=== PATIENT | female | born 1955 | race Caucasian/White ===

== ENCOUNTER 2016-10-03 17:38 | Emergency (ER) | payer OTHER ==
[2016-10-03 17:42] VITALS: BMI 25.1
--- NOTE | 2016-10-03 18:29 | PDOC ---
History of Present Illness - General History Source: Patient Exam Limitations: No Limitations - History of Present Illness Initial Comments: 10/03/16 18:33 The patient is a 60 year old female, with significant past medical history of HLD, who presents today complaining of 5 days of intermittent chest palpitations. At the onset of chest palpitations 5 days ago she was sitting at home and the palpitations lasted for 1 hour. She states that she has approximately 2 episodes of palpitations a day; however, today she had multiple episodes. She states that her only change in diet has been increased coffee intake. Denies chest pain, sob. Denies nausea, vomiting, fever, chills, abdominal pain. Allergies:Pork Social Hx: No tobacco use, No alcohol use. <Savanna Ventura - Last Filed: 10/03/16 18:34> - General History Source: Patient, Old Records Exam Limitations: No Limitations <Latisha Bolaños - Last Filed: 10/03/16 20:54> - General Chief Complaint: Palpitations Stated Complaint: PALPITATIONS Time Seen by Provider: 10/03/16 18:16 Past History <Savanna Ventura - Last Filed: 10/03/16 18:34> - Past Medical History Hypercholesterolemia: Yes - Immunization History Td Vaccination: Yes Immunization Up to Date: Yes - Psycho/Social/Smoking Cessation Hx Anxiety: No Suicidal Ideation: No Smoking Status: No Smoking History: Never smoked Have you smoked in the past 12 months: No Number of Cigarettes Smoked Daily: 0 Hx Alcohol Use: No Drug/Substance Use Hx: No Substance Use Type: None <Latisha Bolaños - Last Filed: 10/03/16 20:54> - Past Medical History Allergies/Adverse Reactions: Allergies Allergy/AdvReac Type Severity Reaction Status Date / Time PORK Allergy Swelling Uncoded 10/03/16 17:43 Home Medications: Ambulatory Orders Atorvastatin Ca [Lipitor] 40 mg PO HS 11/24/11 Review of Systems - Review of Systems Able to Perform ROS?: Yes Comments:: 10/03/16 18:34 CONSTITUTIONAL: Absent: fever, no chills, no fatigue EYES: Absent: visual changes ENT: Absent: ear pain, no sore throat CARDIOVASCULAR: Present: palpitations Absent: chest pain RESPIRATORY: Absent: cough, no SOB GI: Absent: abdominal pain, no nausea, no vomiting, no constipation, no diarrhea GENITOURINARY: Absent: dysuria, no frequency, no hematuria MUSCULOSKELETAL: Absent: back pain, no arthralgia, no myalgia SKIN: Absent: rash <Savanna Ventura - Last Filed: 10/03/16 18:34> *Physical Exam - Vital Signs Last Vital Signs Temp Pulse Resp BP Pulse Ox 97.8 F 67 20 151/82 96 10/03/16 17:40 10/03/16 17:40 10/03/16 17:40 10/03/16 17:40 10/03/16 17:40 - Physical Exam Comments: 10/03/16 18:34 GENERAL: Well-appearing, well-nourished. No apparent distress. HEENT: Normocephalic, atraumatic. PERRL, EOM intact. CARDIOVASCULAR: Normal S1, S2. Regular rate and rhythm. PULMONARY: Clear to auscultation bilaterally. ABDOMEN: Soft, non-distended, non-tender. EXTREMITIES: Normal ROM in all four extremities. No gross deformities. SKIN: Warm, dry. No rash NEUROLOGICAL: No focal neurological deficits. <Lee AnnbaldoChristySavanna - Last Filed: 10/03/16 18:34> - Vital Signs Last Vital Signs Temp Pulse Resp BP Pulse Ox 97.8 F 67 20 151/82 96 10/03/16 17:40 10/03/16 17:40 10/03/16 17:40 10/03/16 17:40 10/03/16 17:40 <Latisha Bolaños - Last Filed: 10/03/16 20:54> ED Treatment Course - LABORATORY CBC & Chemistry Diagram: 10/03/16 18:30 10/03/16 18:30 <Latisha Bolaños - Last Filed: 10/03/16 20:54> Medical Decision Making - Medical Decision Making 10/03/16 18:31 60-year-old female with history of hypercholesterolemia presents the emergency department with a one-week history of intermittent palpitations. Differential diagnosis includes but is not limited to: Cardiac arrhythmia, PVCs, MCP, electrolyte abnormality, dehydration, toxic/metabolic derangement. Plan: 1. EKG 2. Labs 3. Thyroid studies 4. Urine 5. Chest x-ray 6. Observe and reevaluate 10/03/16 20:52 Addendum: The labs were reviewed and are noted in the EMR. EKG shows sinus bradycardia at 55 bpm with no acute ST segment elevations. Chest x-ray is negative. I have discussed the results of all of the studies with the patient and the plan is to discharge home. The patient has an appointment with her primary care physician for Wednesday which I have encouraged her to keep. I have also advised the patient to return to the emergency department if her symptoms persist, worsen, or new symptoms arise. <Latisha Bolaños - Last Filed: 10/03/16 20:54> *DC/Admit/Observation/Transfer - Attestations Scribe Attestion: 10/03/16 18:34 Documentation prepared by ROSA Holloway, acting as medical director of hospice for Latisha Bolaños MD. <Savanna Ventura - Last Filed: 10/03/16 18:34> - Discharge Dispostion Admit: No - Attestations Physician Attestion: 10/03/16 18:32 I, Dr. Latisha Bolaños, attest that the scribes documentation that appears above has been prepared under my direction and personally reviewed by me in its entirety. I confirmed that the note above accurately reflects all work, treatment, procedures, and medical decision-making performed by me. <Latisha Bolaños - Last Filed: 10/03/16 20:54> Diagnosis at time of Disposition: Palpitations - Discharge Dispostion Disposition: HOME Condition at time of disposition: Stable - Patient Instructions Printed Discharge Instructions: DI for Palpitations Additional Instructions: Keep your primary care appointment on Wednesday as scheduled. Return to the emergency department if your symptoms persist, worsen, or new symptoms arise.
[2016-10-03 18:46] LABS: BASOPHIL 0.7 % (0-2.0); MCH 29.6 pg (25.7-33.7); MCHC 32.5 g/dl (32.0-36.0); MEAN CELL VOLUME 91.1 fl (80-96); MEAN PLT VOLUME 9.2 fl (7.5-11.1); NEUTROPHILS 52.6 % (42.8-82.8); PLATELET COUNT 265 K/MM3 (134-434); RDW 13.9 % (11.6-15.6); WHITE BLOOD COUNT 9.3 K/mm3 (4.0-10.0)
[2016-10-03 19:12] LABS: URINE APPEARANCE CLEAR; URINE BILIRUBIN NEGATIVE (NEGATIVE); URINE COLOR LTYELLOW; URINE GLUCOSE (UA) NEGATIVE (NEGATIVE); URINE KETONE NEGATIVE (NEGATIVE); URINE LEUK ESTERASE NEGATIVE (NEGATIVE); URINE NITRITE NEGATIVE (NEGATIVE); URINE PROTEIN NEGATIVE (NEGATIVE); URINE UROBILINOGEN NEGATIVE E.U./dl (0.2-1.0)
[2016-10-03 19:23] LABS: ALBUMIN 4.6 g/dl (3.4-5.0); ANION GAP 8 (8-16); CALCIUM 9.3 mg/dL (8.5-10.1); CO2 27 mmol/L (21-32); CREATININE 0.7 mg/dL (0.55-1.02); GLUCOSE,RANDOM 114 mg/dL (74-106); SGOT/AST 20 U/L (15-37); SGPT/ALT 41 U/L (12-78); TOT PROT 7.9 g/dl (6.4-8.2)
[2016-10-03 19:28] LABS: URINE BLOOD 2+ (NEGATIVE)
[2016-10-03 19:37] LABS: ALK PHOS 113 U/L (45-117); BILIRUBIN,TOTAL 0.8 mg/dL (0.2-1.0); TROPONIN I < 0.02 ng/ml (0.00-0.05)
[2016-10-03 19:49] LABS: URINE MUCUS RARE; URINE RBC 6 /hpf (0-3); URINE WBC 1 /hpf (3-5)
[2016-10-03 21:38] VITALS: BP 124/74; PULSE 84; TEMP 98.6
--- NOTE | 2016-10-04 14:39 | EKG ---
Test Reason : Blood Pressure : / mmHG Vent. Rate : 055 BPM Atrial Rate : 055 BPM P-R Int : 172 ms QRS Dur : 112 ms QT Int : 412 ms P-R-T Axes : 049 -68 067 degrees QTc Int : 394 ms SINUS BRADYCARDIA LEFT AXIS DEVIATION RIGHT BUNDLE BRANCH BLOCK ABNORMAL ECG WHEN COMPARED WITH ECG OF 14-NOV-2015 18:36, NO SIGNIFICANT CHANGE WAS FOUND Confirmed by WALLY ALLEN MD ([id number]) on 10/04/2016 2:38:55 PM Referred By: Confirmed By:WALLY ALLEN MD
== END 2016-10-03 21:23 | disposition home or self-care (01) ==
LOC: JER 17:38
DX: R00.2 Palpitations (principal); E78.00 Pure hypercholesterolemia, unspecified
CPT/HCPCS: 36415; 71010-TC; 80053; 81003; 81015; 82550; 84443; 84484; 85025; 93005; 93010; 99285-25

== ENCOUNTER 2016-10-23 09:51 | Day surgery (SDC) | payer OTHER ==
[2016-10-22 11:01] VITALS: BMI 27.6
--- NOTE | 2016-10-23 12:40 | HP ---
Admitting History and Physical - Admission Chief Complaint: Enlarged right groin lymph node History of Present Illness: 60 yo F presents with enlarged right groin lymph node x4 months. She presents today 10/23/16 for a planned right groin lymph node excision with Dr. Akhtar. 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: Alzheimer's, CVA, Dementia, Migraine, Multiple Sclerosis, Peripheral Neuropathy, Parkinson's, Seizure, Syncope, TIA, Vertigo, Other Cardiovascular: Yes: Hyperlipdemia Pulmonary: No: Asthma, Bronchitis, Cancer, COPD, O2 Dependent, Pneumonia, Previously Intubated, Pulmonary Embolus, Pulmonary Fibrosis, Sleep Apnea, Other Gastrointestinal: No: Ascites, Cancer, Constipation, Crohn's Disease, Diverticulitis, Diverticulosis, Esophageal Varices, Gastritis, GERD, GI Bleed, Hemorrhoids, Hiatal Hernia, Inflamatory Bowel Disease, Irritable Bowel Disease, Pancreatitis, Peptic Ulcer Disease, Ulcerative Colitis, Other Hepatobiliary: No: Cirrhosis, Cholelithiasis, Cholecystitis, Choledocholithiasis , Hepatitis A, Hepatitis B, Hepatitis C, Other Renal/: No: Renal Failure, Renal Inusuff, BPH, Cancer, Hematuria, Hemodialysis , Neurogenic Bladder, Renal Calculi, UTI, Other Heme/Onc: No: Anemia, B12 Deficiency, Bleeding Disorder, Cancer, Current Chemotherapy, Current Radiation Therapy, Hemochromatosis, Hypercoaguable State, Myeloproliferative Synd, Sickle Cell Disease, Sickle Cell Trait, Thrombocytopenia, Other Infectious Disease: No: AIDS, C-Diff, Herpes Zoster, HIV, MRSA, STD's, Tuberculosis, VREF, Other Endocrine: No: Evert's Disease, [place]'s Disease, Diabetes Insipidus, Diabetes Mellitus, Hyperparathyroidism, Hyperthyroidism, Hypothyroidism, Osteopenia, SIADH, Other - Past Surgical History Past Surgical History: Yes: Breast Biopsy - Smoking History Smoking history: Never smoked Have you smoked in the past 12 months: No Aproximately how many cigarettes per day: 0 - Alcohol/Substance Use Hx Alcohol Use: No Home Medications - Allergies Allergies/Adverse Reactions: Allergies Allergy/AdvReac Type Severity Reaction Status Date / Time PORK Allergy Swelling Uncoded 10/22/16 11:00 - Home Medications Home Medications: Ambulatory Orders Atorvastatin Ca [Lipitor] 40 mg PO HS 11/24/11 Review of Systems - Review of Systems Constitutional: reports: No Symptoms Eyes: reports: No Symptoms HENT: reports: No Symptoms Neck: reports: No Symptoms Respiratory: reports: No Symptoms Gastrointestinal: reports: No Symptoms Genitourinary: reports: No Symptoms Neurological: reports: No Symptoms Endocrine: reports: No Symptoms Hematology/Lymphatic: reports: No Symptoms Physical Examination Vital Signs: Vital Signs Temperature 98.2 F 10/23/16 10:31 Pulse Rate 59 L 10/23/16 10:31 Respiratory Rate 18 10/23/16 10:31 Blood Pressure 115/59 10/23/16 10:31 O2 Sat by Pulse Oximetry (%) 98 10/23/16 10:31 Constitutional: Yes: Well Nourished, No Distress, Calm Eyes: Yes: WNL HENT: Yes: WNL Neck: Yes: WNL Cardiovascular: Yes: WNL Respiratory: Yes: WNL Gastrointestinal: Yes: WNL Musculoskeletal: Yes: WNL Extremities: Yes: Other (Right groin palpable enlarged lymph node/mass) Neurological: Yes: Alert, Oriented Problem List - Problems (1) Mass Assessment/Plan: 60 yo F presents with enlarged right groin lymph node x4 months. She presents today 10/23/16 for a planned right groin lymph node excision with Dr. Akhtar Code(s): R22.9 - LOCALIZED SWELLING, MASS AND LUMP, UNSPECIFIED Assessment/Plan 60 yo F presents with enlarged right groin lymph node x4 months. She presents today 10/23/16 for a planned right groin lymph node excision with Dr. Akhtar
[2016-10-23] MEDS ORDERED: MIDAZOLAM HCL 2 MG/2 ML SINGLE DOSE VIAL ONE ×2 (12:55→13:31)
[2016-10-23] MEDS ORDERED: PROPOFOL 20 ML ONE (12:55)
--- NOTE | 2016-10-23 13:56 | OP ---
Operative Note - Note: Operative Date: 10/23/16 Pre-Operative Diagnosis: right groin lymphadenopathy Operation: excisional biopsy right groin lymph node Findings: 3.0 cm. lymph node Post-Operative Diagnosis: Same as Pre-op Surgeon: Sunny Akhtar Merchandising Intern: Amna Avila Anesthesia: MAC Specimens Removed: right groin lymph node Estimated Blood Loss (mls): 5
[2016-10-23] MEDS ORDERED: ACETAMINOPHEN 325 MG TABLET (FP) PO PRN (14:05)
[2016-10-23] MEDS ORDERED: oxyCODONE HCL 5 MG TABLET PO PRN ×2 (14:05→14:08)
--- NOTE | 2016-10-23 14:05 | SURG ---
Surgery Boat Canvas Installer Note Boat Canvas Installer: Amna Avila PA-C Date of Service: 10/23/16 Diagnosis: right groin lymphadenopathy Procedure: excisional biopsy right groin lymph node I was present for the entirety of the operative procedure. For further detail, please refer to operative report. Visit type - Case Type Case Type: Scheduled Admission - New patient This patient is new to me today: Yes Date on this admission: 10/23/16
[2016-10-23] MEDS ORDERED: ONDANSETRON 4 MG/2 ML VIAL IVPUSH PRN (14:08)
[2016-10-23] MEDS ORDERED: LACTATED RINGERS SOLUTION 1,000 ML IV SCH (14:15)
[2016-10-23] MEDS ORDERED: KETOROLAC TROMETHAMINE 30 MG/1 ML VIAL ONE (14:47)
[2016-10-23 15:12] VITALS: TEMP 97.8
[2016-10-23] MEDS ORDERED: ACETAMINOPHEN 325 MG TABLET (FP) ONE (15:25)
[2016-10-23 17:36] VITALS: BP 134/70; PULSE 58
--- NOTE | 2016-10-26 11:06 | OP ---
DATE OF OPERATION: 10/23/2016 PREOPERATIVE DIAGNOSIS: Right groin lymphadenopathy. POSTOPERATIVE DIAGNOSIS: Right groin lymphadenopathy. PROCEDURE: Excisional biopsy right groin lymph node. SURGEON: Sunny Akhtar MD TIE LAYER: Amna Avila PA-C ANESTHESIA: Local with IV sedation. OPERATIVE FINDINGS: There was an approximately 3-cm lymph node in the right groin. The rest of the findings were unremarkable. ESTIMATED BLOOD LOSS: 5 mL. REPLACEMENT: Crystalloid. DRAINS: None. SPECIMENS: Right groin lymph node. DESCRIPTION OF PROCEDURE: The patient was placed on the operating room table in supine position, and the right groin was prepped with ChloraPrep and draped in a sterile fashion. A time-out was taken and then incision mapped out over the palpable abnormality. The area was infiltrated with 1% Xylocaine and 0.5% Marcaine in equal concentration. Incision was made with a scalpel and taken down through skin and subcutaneous tissue. The node was identified and bluntly dissected from the surrounding tissue. Small vessels going into the node were divided and ligated using 3-0 Vicryl suture. The node was then passed off the operative field and sent fresh for pathology and also for culture and sensitivity and acid-fast bacilli. Hemostasis was checked for and noted to be good and then the wound was copiously irrigated with sterile water. The deep fascia was closed with interrupted 2-0 Vicryl, the deep dermis with interrupted 3-0 Vicryl, and the skin edges with 4-0 Biosyn in a subcuticular continuous fashion. Steri-Strips and dry sterile dressings were placed and the patient terminated at this point and the patient transferred to the post anesthesia care unit in stable condition awake and alert. I, Sunny Akhtar, was physically present in the operating room from the time the patient was placed on the operating room table until she was transferred to the post anesthesia care unit in [employer]. MD AMAN Cabral/[id number]
== END 2016-10-23 16:25 | disposition home or self-care (01) ==
LOC: JOR 09:51 → JASU-SURG 09:51
PROVIDERS: ATTEND Surgery
PROC: 07BC3ZX Excision of Pelvis Lymphatic, Percutaneous Approach, Diagnostic (ICD-10-PCS; principal; 2016-10-23 12:00)
DX: R59.0 Localized enlarged lymph nodes (principal)
CPT/HCPCS: 87070; 87075; 87116; 87205; 87206; 88305-TC; 88333; 88341-TC; 88342-TC; 94760